=== PATIENT | female | born 1970 | race African-American/Black ===

== ENCOUNTER → 2020-08-06 | Outpatient (CLI) | payer OTHER ==
[~2020-08-06] MED LIST: ADVAIR 250-501 EACH; BACTRIM DS TAB1 EACH PO; KEFLEX500 MG PO; MILLIPRED DP5 MG; NORCO 5-325 TA1 EACH PO; XOPENEX0.31 MG/3
== END ==
LOC: RAD 14:56
PROVIDERS: ATTEND Internal Medicine
DX: M99.13 Subluxation complex (vertebral) of lumbar region (principal)